=== PATIENT | female | born 1985 | race Caucasian/White ===

== ENCOUNTER 2017-09-19 05:28 | Emergency (ER) | payer OTHER ==
[~2017-09-19] VITALS: Ht 160 cm; Wt 90.7 kg
[~2017-09-19 05:28] MED LIST: ADVAIR 250-501 EACH; ADVAIR HFA115 MCG/21; ALBUTEROL2.5 MG/0.5; ALBUTEROL2.5 MG/0.5 INH; ALBUTEROL2.5 MG/31 INH; APAP650 PO; AZITHROMYCIN 2250 MG PO; BACTRIM 400-801 EACH; BIRTH CONTROL PILLS; CELEXA 10 MG TA10 M1; CELEXA 10 MG TA10 MG; CEPHALEXIN 500500 M3 PO; CHLORASEPTIC20 ML MM; CITRATE OF MAG296 ML PO; CLARITIN10 M2; CLARITIN10 MG PO; CLEOCIN HCL150 MG PO; CLEOCIN HCL300 MG PO; COLACE 100 MG100 MG PO; DOXYCYCLINE 10100 MG PO; DULERA 100 MCG/13 GM INH; EXCEDRIN SINUS1 EAC2 PO; FLEXERIL PO; FLONASE 0.05%50 MCG NASAL; FLONASE 0.05%50 MCG NS; FLONASE16 GM; HYDROCHLOROTH12.5 M1; HYDROCHLOROTH12.5 M1 PO; HYDROCHLOROTH12.5 M2 PO; HYDROCHLOROTH12.5 MG PO; HYDROCHLOROTHIA25 M1; HYDROCODONE-AP1 EAC6 PO; HYDROXYZINE HCL25 M1 PO; HYDROXYZINE HCL50 MG PO; IBUPROFEN 800800 M1; IBUPROFEN 800800 M1 PO; IBUPROFEN200 M2; K-DUR 20 MEQ T20 MEQ PO; KEFLEX500 MG; LOPRESSOR 50 MG50 M1 PO; LOPRESSOR25 PO; MEDROLDOSEPACK PO; MOBIC7.5 M1 PO; MUCINEX; MUCINEX D ER 61 EACH PO; MUCINEX TA600 MG/TA2; MUCINEX600 MG; MUCINEX600 MG PO; NAPROSYN500 MG PO; NOHOMEMEDICATIONS; NORCO 5-325 TA1 EAC1 PO; NORCO 5-325 TA1 EACH PO; PREDNISONE 20 M20 M1; PREDNISONE 20 M20 MG PO; PRINIVIL20 MG PO; PROAIR HFA8.5 GM IH; PROAIR HFA8.5 GM INH; PROCTOCREAM-HC30 G1 RC; PROGESTERONE; ROBAXIN 750 MG750 M1 PO; ROBITUSSIN100 MG/5 M PO; SYMBICORT160 MCG/4. INH; TESSALON PERLE100 M1 PO; TESSALON PERLE100 MG; TESSALON PERLE100 MG PO; ULTRAM 50MG TAB50 MG PO; VENTOLIN HFA INH8 GM; VENTOLIN HFA INH8 GM INH; XANAX 0.25 MG0.25 MG PO; ZANTAC 150MG T150 M1 PO; ZANTAC 150MG T150 MG PO; ZITHROMAX1 GM PO; ZOLOFT25 MG; ZPAK PO; ZYRTEC-D TABLE1 EAC1 PO; [UNRECOGNIZED DRUG - OTHER]
[2017-09-19] MEDS ORDERED: ALBUTEROL2.5 MG/31 INH (05:39)
[2017-09-19 06:15] LABS: INFLUENZA A ANTIGEN None Detected (None Detect); INFLUENZA B ANTIGEN None Detected (None Detect)
[2017-09-19] MEDS ORDERED: PREDNISONE50 MG PO (06:21)
[2017-09-19 06:32] VITALS: BP 137/98
== END 2017-09-19 06:32 | disposition home or self-care (01) ==
LOC: M.ERS 05:28
PROVIDERS: Emergency Medicine
DX: J06.9 Acute upper respiratory infection, unspecified (principal); B97.89 Other viral agents as the cause of diseases classified elsewhere; I10 Essential (primary) hypertension; J45.909 Unspecified asthma, uncomplicated; F41.9 Anxiety disorder, unspecified; G89.29 Other chronic pain; G40.909 Epilepsy, unspecified, not intractable, without status epilepticus; F17.210 Nicotine dependence, cigarettes, uncomplicated; F10.99 Alcohol use, unspecified with unspecified alcohol-induced disorder; Z88.0 Allergy status to penicillin; Z88.5 Allergy status to narcotic agent; Z88.8 Allergy status to other drugs, medicaments and biological substances

== ENCOUNTER 2017-10-06 17:02 | Emergency (ER) | payer OTHER ==
[~2017-10-06] VITALS: Ht 152.4 cm; Wt 77.1 kg
[~2017-10-06 17:02] MED LIST changes: +PREDNISONE50 MG PO
[2017-10-06] MEDS ORDERED: BENZONATATE200 MG PO ×2 (18:21→18:22)
[2017-10-06] MEDS ORDERED: ZPAK PO ×2 (18:21→18:22)
[2017-10-06 18:40] VITALS: BP 130/78
== END 2017-10-06 18:41 | disposition home or self-care (01) ==
LOC: M.ERS 17:02
DX: J03.90 Acute tonsillitis, unspecified (principal); I10 Essential (primary) hypertension; F41.9 Anxiety disorder, unspecified; G89.29 Other chronic pain; M54.9 Dorsalgia, unspecified; J45.909 Unspecified asthma, uncomplicated; J42 Unspecified chronic bronchitis; F17.210 Nicotine dependence, cigarettes, uncomplicated; Z88.6 Allergy status to analgesic agent; Z88.0 Allergy status to penicillin

== ENCOUNTER 2017-11-04 14:54 | Emergency (ER) | payer OTHER ==
[~2017-11-04] VITALS: Ht 160 cm; Wt 90.7 kg
[~2017-11-04 14:54] MED LIST changes: +BENZONATATE200 MG PO
[2017-11-04] MEDS ORDERED: MUCINEX600 MG PO (15:06)
[2017-11-04] MEDS ORDERED: SYMBICORT160 MCG/4. INH (15:06)
[2017-11-04] MEDS ORDERED: CORICIDIN COLD1 EACH PO (15:06)
[2017-11-04 16:02] LABS: INFLUENZA A ANTIGEN None Detected (None Detect); INFLUENZA B ANTIGEN None Detected (None Detect)
[2017-11-04] MEDS ORDERED: TESSALON PERLE100 MG PO (16:40)
[2017-11-04] MEDS ORDERED: PREDNISONE 10 M10 MG PO (16:40)
[2017-11-04] MEDS ORDERED: VENTOLIN HFA 1818 GM INH (16:40)
[2017-11-04 17:53] VITALS: BP 140/84
== END 2017-11-04 18:03 | disposition home or self-care (01) ==
LOC: M.ERS 14:54
PROVIDERS: Physician Assistant
DX: J40 Bronchitis, not specified as acute or chronic (principal); I10 Essential (primary) hypertension; F41.9 Anxiety disorder, unspecified; G89.29 Other chronic pain; M54.9 Dorsalgia, unspecified; F17.210 Nicotine dependence, cigarettes, uncomplicated; Z88.6 Allergy status to analgesic agent; Z88.0 Allergy status to penicillin

== ENCOUNTER 2017-11-06 01:05 | Emergency (ER) | payer OTHER ==
[~2017-11-06] VITALS: Ht 160 cm; Wt 90.7 kg
[~2017-11-06 01:05] MED LIST changes: +CORICIDIN COLD1 EACH PO; +PREDNISONE 10 M10 MG PO; +VENTOLIN HFA 1818 GM INH
[2017-11-06] MEDS ORDERED: DOXYCYCLINE 10100 MG (01:15)
[2017-11-06] MEDS ORDERED: ROBITUSSIN COU237 M2 (01:15)
[2017-11-06] MEDS ORDERED: HYDROCODONE-AP1 EAC6 PO (02:33)
[2017-11-06] MEDS ORDERED: XANAX 1 MG TABLE1 MG PO (02:33)
[2017-11-06 02:45] VITALS: BP 139/89
== END 2017-11-06 02:45 | disposition home or self-care (01) ==
LOC: M.ERS 01:05
DX: J06.9 Acute upper respiratory infection, unspecified (principal); F41.9 Anxiety disorder, unspecified; I10 Essential (primary) hypertension; J45.909 Unspecified asthma, uncomplicated; G89.29 Other chronic pain; M54.9 Dorsalgia, unspecified; F17.210 Nicotine dependence, cigarettes, uncomplicated; Z88.6 Allergy status to analgesic agent; Z88.0 Allergy status to penicillin

== ENCOUNTER 2019-08-28 02:25 | Emergency (ER) | payer OTHER ==
[~2019-08-28] VITALS: Ht 157.5 cm; Wt 96.2 kg
[~2019-08-28 02:25] MED LIST changes: +DOXYCYCLINE 10100 MG; +ROBITUSSIN COU237 M2; +XANAX 1 MG TABLE1 MG PO
[2019-08-28] MEDS ORDERED: CYMBALTA20 MG PO (02:40)
[2019-08-28] MEDS ORDERED: SINGULAIR 10 MG10 M1 PO (02:40)
[2019-08-28] MEDS ORDERED: ZPAK PO (02:41)
[2019-08-28] MEDS ORDERED: PREDNISONE 20 M20 M1 PO (03:22)
[2019-08-28 03:26] VITALS: BP 123/84
== END 2019-08-28 03:34 | disposition home or self-care (01) ==
LOC: M.ERS 02:25
DX: J45.901 Unspecified asthma with (acute) exacerbation (principal); I10 Essential (primary) hypertension; F41.9 Anxiety disorder, unspecified; F17.210 Nicotine dependence, cigarettes, uncomplicated; Z88.0 Allergy status to penicillin; Z88.6 Allergy status to analgesic agent; Z88.8 Allergy status to other drugs, medicaments and biological substances

== ENCOUNTER 2021-02-01 22:12 | Emergency (ER) | payer OTHER, MEDICAID ==
[~2021-02-01] VITALS: Ht 160 cm; Wt 99.8 kg
[~2021-02-01 22:12] MED LIST changes: +CYMBALTA20 MG PO; +PREDNISONE 20 M20 M1 PO; +SINGULAIR 10 MG10 M1 PO
[2021-02-01] MEDS ORDERED: FLONASE 0.05%50 MCG NARES (22:40)
[2021-02-01] MEDS ORDERED: RIFAMPIN 300 M300 MG PO (22:40)
[2021-02-01] MEDS ORDERED: SPIRIVA18 MCG INH (22:40)
[2021-02-01] MEDS ORDERED: NASONEX17 GM NASAL (22:40)
[2021-02-01 23:56] VITALS: BP 141/70
== END 2021-02-02 00:13 | disposition home or self-care (01) ==
LOC: M.ERS 22:12
DX: R09.89 Other specified symptoms and signs involving the circulatory and respiratory systems (principal); J45.909 Unspecified asthma, uncomplicated; I10 Essential (primary) hypertension; F17.210 Nicotine dependence, cigarettes, uncomplicated; Z88.0 Allergy status to penicillin; Z88.8 Allergy status to other drugs, medicaments and biological substances

== ENCOUNTER 2021-03-04 19:30 | Emergency (ER) | payer OTHER, MEDICAID ==
[~2021-03-04] VITALS: Ht 160 cm; Wt 102.1 kg
[~2021-03-04 19:30] MED LIST changes: +FLONASE 0.05%50 MCG NARES; +NASONEX17 GM NASAL; +RIFAMPIN 300 M300 MG PO; +SPIRIVA18 MCG INH
[2021-03-04] MEDS ORDERED: HYDROCODONE-IB1 EACH PO (20:28)
[2021-03-04 20:40] VITALS: BP 144/79
== END 2021-03-04 20:40 | disposition home or self-care (01) ==
LOC: M.ERS 19:30
DX: M54.41 Lumbago with sciatica, right side (principal); I10 Essential (primary) hypertension; J45.909 Unspecified asthma, uncomplicated; F17.210 Nicotine dependence, cigarettes, uncomplicated; Z88.0 Allergy status to penicillin; Z88.6 Allergy status to analgesic agent; Z88.8 Allergy status to other drugs, medicaments and biological substances

== ENCOUNTER 2021-05-05 19:47 | Emergency (ER) | payer OTHER, MEDICAID ==
[~2021-05-05] VITALS: Ht 160 cm; Wt 101.2 kg
[~2021-05-05 19:47] MED LIST changes: +HYDROCODONE-IB1 EACH PO
[2021-05-05] MEDS ORDERED: ADVAIR 100-501 EACH INH (20:02)
[2021-05-05] MEDS ORDERED: METHOTREXATE 22.5 M1 PO (20:03)
[2021-05-05 21:21] LABS: CALCIUM 8.3 mg/dL (8.5-10.1); CREATININE 0.7 mg/dL (0.6-1.3); POTASSIUM 3.6 mmol/L (3.5-5.1)
[2021-05-05 21:22] LABS: ABSOLUTE EOSINOPHILS 0.5 thou/uL (0.0-0.7); ABSOLUTE LYMPHOCYTES 2.3 thou/uL (0.8-5.3); ABSOLUTE MONOCYTES 0.5 thou/uL (0.0-1.2); ABSOLUTE NEUTROPHILS 9.3 thou/uL (1.6-8.1); BASOPHILS 0.1 %; EOSINOPHILS 4.2 %; HEMATOCRIT 35.6 % (37.0-47.0); HEMOGLOBIN 12.1 gm/dL (12.0-15.0); LYMPHOCYTES 17.9 %; MCH 27.8 pg (26.0-34.0); MCV 81.9 fL (80.0-100.0); MONOCYTES 4.3 %; MPV 8.1 fl. (7.2-11.1); NUCLEATED RBCS 0 /100WBC; PLATELET COUNT* 355 thou/uL (150-400); POLYS 73.5 %; RBC 4.35 mil/uL (4.20-5.00); RDW-CV 15.1 % (10.5-14.5); WBC 12.6 thou/uL (4.0-11.0)
[2021-05-05 21:25] LABS: ALBUMIN 3.6 g/dL (3.4-5.0); MAGNESIUM 1.9 mg/dL (1.8-2.4); TOTAL BILIRUBIN 0.3 mg/dL (<0.1-1.0); TOTAL PROTEIN 7.3 g/dL (6.4-8.2)
[2021-05-05] MEDS ORDERED: CARAFATE1 GM PO (23:08)
[2021-05-05 23:31] VITALS: BP 103/50
--- NOTE | 2021-05-06 15:49 | EKG ---
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 : 1985 Requested By: Kraig Polanco Order Number: [id number] : Louie De Anda Measurements Intervals [place] Rate: 94 P: 64 MD: 133 QRS: 3 QRSD: 89 T: 27 QT: 367 QTc: 459 Interpretive Statements Sinus rhythm Low voltage, precordial leads Baseline wander in lead(s) II,III,aVL,aVF,V3,V4,V5,V6 Compared to ECG 06/12/2017 18:22:57 Low QRS voltage now present T-wave abnormality no longer present Prolonged QT interval no longer present Electronically Signed On 05-06-2021 15:49:18 CDT by Louie De Anda [email or web address] <ELECTRONICALLY SIGNED> By: Louie De Anda MD, [facility] 05/06/21 1549 [id number] 54 Louie De Anda MD, [facility] /EPI
--- NOTE | 2021-05-06 15:50 | EKG ---
[place] [address] ELECTROCARDIOGRAM REPORT Name: NUPURYOSELYNPARADISE Room: [facility]#: [id number] Admission: 05/05/21 Attend Phys: Discharge: 05/05/21 Date of : 81 Date of Service: 05/05/212257 Report #: [id number] THIS REPORT FOR: //name// [facility] ED Test Date: 2021-05-05 Test Time: 22:58:48 Pat Name: PARADISE DHILLON Department: Room: Gender: F [employer]: [place] : 1985 Requested By: Kraig Polanco Order Number: [id number] MD: Louie De Anda Measurements Intervals [place] Rate: 82 P: 68 CT: 144 QRS: 19 QRSD: 95 T: 11 QT: 404 QTc: 472 Interpretive Statements Sinus rhythm Compared to ECG 05/05/2021 19:55:54 No significant changes Electronically Signed On 05-06-2021 15:50:30 CDT by Louie De Anda [email or web address] <ELECTRONICALLY SIGNED> By: Louie De Anda MD, [facility] 05/06/21 1550 [id number] Louie De Anda MD, [facility] /EPI
== END 2021-05-05 23:32 | disposition home or self-care (01) ==
LOC: M.ERS 19:47
PROVIDERS: Emergency Medicine Emergency Medical Services
DX: R07.89 Other chest pain (principal); I10 Essential (primary) hypertension; F41.9 Anxiety disorder, unspecified; J45.909 Unspecified asthma, uncomplicated; F17.210 Nicotine dependence, cigarettes, uncomplicated; Z79.51 Long term (current) use of inhaled steroids; Z79.899 Other long term (current) drug therapy; Z88.0 Allergy status to penicillin; Z88.6 Allergy status to analgesic agent; Z88.8 Allergy status to other drugs, medicaments and biological substances